=== PATIENT | female | born 1990 | race Caucasian/White ===

== ENCOUNTER 2017-03-30 13:53 | Emergency (ER) | payer SELFPAY ==
[~2017-03-30] VITALS: Ht 165.1 cm; Wt 63.4 kg
[2017-03-30 14:24] VITALS: BP 129/58; PULSE 64; RESP 16; TEMP 98.7; O2SAT 98
--- NOTE | 2017-03-30 14:59 | PD ---
HPI Chief Complaint: Recruiting Assistant Problem/Complaint Time Seen by Provider: 14:32 Travel History International Travel<30 days: No Contact w/Intl Traveler<30days: No Traveled to known affect area: No History of Present Illness HPI This is a 26 year old who is 7 weeks who presents to the emergency department with some blood when she wipes. Pt. reports she had some pink tinge on her toilet paper last night, constant through to this morning, mild, associated with some mild left lower quadrant abdominal discomfort. Pt. has had one miscarriage in the past and one . 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) Diminished Hearing: No Influenza Vaccination: No ?: LMP: 02/10/17 : 2 Miscarriage: 2 Social History Alcohol Use: No (QUIT ) Tobacco Use: No (QUIT SINCE ) Substance Use: Yes (K2) Allergies-Medications (Allergen,Severity, Reaction): Coded Allergies: No Known Allergies (Unverified Adverse Reaction, Unknown, 03/30/17) Reported Meds & Prescriptions Reported Meds & Active Scripts Active No Active Prescriptions or Reported Medications Review of Systems Except as stated in HPI: all other systems reviewed are Neg Physical Exam Narrative GENERAL:Well appearing, no acute distress SKIN: Focused skin assessment warm and dry. HEAD: Atraumatic. Normocephalic. EYES: Pupils equal and round. No injection or drainage. ENT: Moist mucous membranes NECK: Trachea midline. CARDIOVASCULAR: Regular rate and rhythm. No murmur appreciated. RESPIRATORY: Clear to auscultation. Breath sounds equal bilaterally. GASTROINTESTINAL: Abdomen soft, non-tender, nondistended. LANDSCAPE LABORER: Moderate white discharge in the vault some pink tinged discharge MUSCULOSKELETAL: No obvious deformities. NEUROLOGICAL: Awake and alert. No obvious cranial nerve deficits. Moving all extremities. PSYCHIATRIC: Appropriate mood and affect; insight and judgment normal. Data Data Last Documented VS Vital Signs Date Time Temp Pulse Resp B/P (MAP) Pulse Ox O2 Delivery O2 Flow Rate FiO2 03/30/17 14:24 98.7 64 16 129/58 (81) 98 Orders Orders Ed Poc Ultrasound (03/30/17 ) Urinalysis - C+S If Indicated (03/30/17 15:02) Beta Hcg (Quant/Titer) (03/30/17 15:09) Type And Screen (03/30/17 15:09) Wet Prep Profile (03/30/17 16:38) Gc And Chlamydia Pcr (03/30/17 16:38) Labs Laboratory Tests Test 03/30/17 15:19 03/30/17 15:22 03/30/17 16:30 Urine Color YELLOW Urine Turbidity SLIGHT Urine pH 7.0 Urine Specific [place] 1.028 Urine Protein NEG mg/dL Urine Glucose (UA) NEG mg/dL Urine Ketones NEG mg/dL Urine Occult Blood MOD Urine Nitrite NEG Urine Bilirubin NEG Urine Leukocyte Esterase NEG Urine RBC 0-3 /hpf Urine WBC 0-2 /hpf Urine Squamous Epithelial Cells 6-8 /hpf Urine Amorphous Sediment LARGE Microscopic Urinalysis Comment CULT NOT INDICATED Human Chorionic Gonadotropin, Quant 9707 MIU/ML Clue Cells (Wet Prep) NONE SEEN Vaginal Trichomonas (Wet Prep) NONE SEEN Vaginal Yeast (Wet Prep) NONE SEEN MDM Medical Decision Making Medical Screen Exam Complete: Yes Emergency Medical Condition: Yes Interpretation(s) Afebrile, no tachycardia, normotensive HCG is 9700 Urinalysis is negative for infection Wet prep is negative Differential Diagnosis Threatened miscarriage, incomplete miscarriage, completed miscarriage, urinary tract infection, cervicitis, vaginosis Narrative Course This is a 26-year-old female who presents to the emergency department with some spotting in the setting of early . I performed a bedside ultrasound which demonstrated a gestational sac and a yolk sac with a small pole. It was too early to identify a heart rate on transabdominal exam. HCG is 9000. Urinalysis is negative for infection. Wet prep is negative. Gonorrhea and chlamydia were sent the patient has no risk factors for such. Patient will be discharged to follow-up with an director digital sales. Diagnosis Primary Impression: Threatened miscarriage in early Referrals: [facility] Patient Instructions: General Instructions Additional Instructions: You have been diagnosed with a threatened miscarriage. Many women who have vaginal bleeding in early go on to have normal pregnancies. However some women that have vaginal bleeding will have a miscarriage and it is important to followup with your director digital sales. If you develop severe abdominal pain, fever, persistent vomiting or inability to eat, heavy vaginal bleeding using more than one pad an hour, lightheadedness , dizziness, chest pain or shortness of breath return to the emergency department immediately. Followup with your director digital sales as soon as possible. Take Tylenol as needed for pain. Med/Other Pt SpecificInfo: No Change to Meds Scripts No Active Prescriptions or Reported Meds Disposition: 01 DISCHARGE HOME Condition: Stable Jessica Zuniga MD Mar 30, 2017 14:59
[2017-03-30 15:35] LABS: BLOOD, URINE MOD (NEG); GLUCOSE,URINE NEG (NEG); KETONE, URINE NEG (NEG); NITRITE,URINE NEG (NEG)
[2017-03-30 15:48] LABS: URINE COLOR YELLOW (YELLW/STRAW)
[2017-03-30 15:49] LABS: COMMENT (UR) CULT NOT INDICATED; CULTURE IF INDICATED CULT NOT INDICATED; RBC, URINE 0-3 /hpf (0-3); WBC, URINE 0-2 /hpf (0-5)
[2017-03-30 16:15] LABS: BETA HCG QUANT 9707 MIU/ML (0-5)
[2017-03-30 17:33] VITALS: BP 133/61
[2017-03-30 20:23] LABS: CHLAMYDIA PCR NOT DETECTED (NOT DETECT); NEISSERIA PCR NOT DETECTED (NOT DETECT)
[2017-04-22] MEDS ORDERED: PROM12.54 PO (15:58)
== END 2017-03-30 17:34 | disposition home or self-care (01) ==
LOC: PHED 13:53
DX: O20.0 Threatened abortion (principal); Z3A.01 Less than 8 weeks gestation of pregnancy
CPT/HCPCS: 81001; 84702; 86850; 86900; 86901; 87210; 87491; 87591; 99284